=== PATIENT | male | born 1955 | race Caucasian/White ===

== ENCOUNTER 2016-10-06 13:58 | Emergency (ER) | payer OTHER ==
[2015-06-09 06:23] VITALS: BMI 28.1
[~2016-10-06 13:58] MED LIST: ADVIL200 MG PO; ASPIRIN325 MG PO; DIOVAN HCT 80-11 TAB PO; FLUTICASONE PRO16 GM NASAL; HYDROCODONE-APA1 TAB PO; PRILOSEC20 MG PO; ZOCOR20 MG PO
[2016-10-06 14:50] LABS: BASOPHILS 0.2 % (0.0-2.0); EOSINOPHILS 0.5 % (0-7); HEMATOCRIT 51.1 % (42.0-54.0); IMMATURE GRANULOCYTES 0.5 % (0-5); LYMPHOCYTES 8.5 % (15-50); MCH 28.9 pg (26.0-34.0); MCHC 33.3 g/dL (31.0-37.0); MCV 86.8 fL (80.0-100.0); MONOCYTES 5.7 % (2-11); NEUTROPHILS 84.6 % (40-80); PLATELET COUNT 224 10x3/uL (130-400); RBC 5.89 10x6/uL (4.20-6.10); RDW 14.8 % (11.5-14.5); WBC 16.9 10x3/uL (4.8-10.8)
[2016-10-06 15:04] LABS: APPEARANCE CLEAR (CLEAR); BACTERIA FEW /hpf (NONE SEEN); BILIRUBIN NEGATIVE (NEGATIVE); COLOR YELLOW (YELLOW); GLUCOSE NEGATIVE (NEGATIVE); KETONE SMALL mg/dL (NEGATIVE); LEUKOCYTE ESTERASE NEGATIVE (NEGATIVE); MUCUS >1+ /lpf (NONE SEEN); NITRITE NEGATIVE (NEGATIVE); PROTEIN NEGATIVE (NEGATIVE); RED CELLS - URINE 25-50 /hpf (0-5); SPECIFIC GRAVITY 1.025 (1.005-1.020); UROBILINOGEN NORMAL (NORMAL); WHITE CELLS - URINE 0-5 /hpf (0-5)
[2016-10-06 15:32] LABS: ALBUMIN 4.5 g/dL (3.4-5.0); ANION GAP 16.1 mmol/L (8-16); BILIRUBIN - TOTAL 0.7 mg/dL (0.2-1.3); CALCIUM 9.3 mg/dL (8.5-10.1); CARBON DIOXIDE 27.7 mmol/L (21.0-32.0); CREATININE - SERUM 1.4 mg/dL (0.6-1.3); POTASSIUM - SERUM 3.8 mmol/L (3.5-5.1); PROTEIN - SERUM 7.8 g/dL (6.4-8.2)
== END 2016-10-06 18:29 | disposition other institution (70) ==
LOC: D.ER 13:58
PROVIDERS: Emergency Medicine
DX: N20.1 Calculus of ureter (principal); N13.2 Hydronephrosis with renal and ureteral calculous obstruction; D72.829 Elevated white blood cell count, unspecified; I10 Essential (primary) hypertension; E78.5 Hyperlipidemia, unspecified